=== PATIENT | male | born 1960 | race Caucasian/White ===

== ENCOUNTER 2021-05-10 22:54 | Emergency (ER) | payer OTHER ==
[~2021-05-10] VITALS: Ht 177.8 cm; Wt 95.7 kg
[~2021-05-10 22:54] MED LIST: ASPIRIN EC81 M1 PO; DARVOCET-N 1001 EACH PO; HYDROCHLOROTHIA25 M2 PO; LISINOPRIL10 MG PO; PERCOCET 5-3251 EACH PO; ZOFRAN ODT4 MG PO
[2021-05-10] MEDS ORDERED: METFORMIN HCL500 MG PO (23:23)
[2021-05-10] MEDS ORDERED: TRULICITY0.75 MG/0. PO (23:23)
[2021-05-11 01:55] VITALS: BP 140/98
== END 2021-05-11 01:55 | disposition home or self-care (01) ==
LOC: M.ERS 22:54
DX: U07.1 COVID-19 (principal); Z88.5 Allergy status to narcotic agent; Z88.2 Allergy status to sulfonamides; Z87.442 Personal history of urinary calculi